=== PATIENT | female | born 1970 | race Caucasian/White ===

== ENCOUNTER 2021-06-22 19:07 | Emergency (ER) | payer BC, MEDICAID ==
[2021-06-22 21:17] LABS: ANION GAP 13.8 mEq/L (7-13); CHLORIDE,CL 105 mmol/L (98-107); SODIUM,NA 142 mmol/L (136-145)
[2021-06-22 23:42] LABS: CORONAVIRUS COVID-19 NAA NEGATIVE (NEGATIVE)
== END 2021-06-23 00:45 | disposition home or self-care (01) ==
LOC: DL.ED 19:07
DX: K59.01 Slow transit constipation (principal); J06.9 Acute upper respiratory infection, unspecified; R31.0 Gross hematuria; E03.9 Hypothyroidism, unspecified; Z88.0 Allergy status to penicillin; Z88.1 Allergy status to other antibiotic agents; Z88.2 Allergy status to sulfonamides; Z88.5 Allergy status to narcotic agent; Z79.899 Other long term (current) drug therapy; Z87.891 Personal history of nicotine dependence; Z20.822 Contact with and (suspected) exposure to COVID-19
CPT/HCPCS: 0240U; 36415; 74176; 80053; 81001; 84484; 85025; 85379; 99284

== ENCOUNTER 2021-07-11 06:06 | Day surgery (SDC) | payer BC, MEDICAID ==
[~2021-07-11 06:06] MED LIST: Dextrose 5%-0.45% NaCl 1,000 ML IV SCH; Sodium Chloride 0.9% 10 ML Syringe FLUSH SCH
[2021-07-11] MEDS ORDERED: fentaNYL 100 MCG/2 ML SDV IV ONE ×3 (06:07→07:00)
[2021-07-11] MEDS ORDERED: Midazolam 1 MG/ML 2 ML SDV IV ONE ×3 (06:07→07:02)
[2021-07-11] MEDS ORDERED: Midazolam 1 MG/ML 2 ML SDV ONE (06:21)
[2021-07-11] MEDS ORDERED: fentaNYL 100 MCG/2 ML SDV ONE (06:21)
== END 2021-07-11 09:10 | disposition home or self-care (01) ==
LOC: DL.ENDO 06:06
PROVIDERS: ATTEND Internal Medicine Gastroenterology
DX: K29.50 Unspecified chronic gastritis without bleeding (principal); F41.1 Generalized anxiety disorder; E03.9 Hypothyroidism, unspecified; K59.09 Other constipation; E78.00 Pure hypercholesterolemia, unspecified; Z90.49 Acquired absence of other specified parts of digestive tract; Z98.890 Other specified postprocedural states; Z88.1 Allergy status to other antibiotic agents; Z88.2 Allergy status to sulfonamides; Z88.5 Allergy status to narcotic agent; Z88.8 Allergy status to other drugs, medicaments and biological substances; Z01.812 Encounter for preprocedural laboratory examination; Z20.822 Contact with and (suspected) exposure to COVID-19
CPT/HCPCS: 43239; 87077; 87635; J2250; J3010; J7042; U0002

== ENCOUNTER 2022-07-31 12:28 | Emergency (ER) | payer MEDICAID, OTHER ==
[2022-07-31] MEDS ORDERED: Metoclopramide 10 MG/2 ML SDV IVPUSH ONE ×2 (13:04→14:17)
[2022-07-31] MEDS ORDERED: LORazepam 2 MG/ML SDV IVPUSH ONE ×2 (13:05→15:41)
[2022-07-31] MEDS ORDERED: diphenhydrAMINE 50 MG/ML SDV IVPUSH ONE (13:05)
[2022-07-31] MEDS: Sodium Chloride 0.9% 10 ML Syringe FLUSH PRN ×3 (13:24→15:57)
[2022-07-31 13:48] LABS: ANION GAP 14.8 mEq/L (7-13); CHLORIDE,CL 106 mmol/L (98-107); SODIUM,NA 141 mmol/L (136-145)
[2022-07-31 13:56] LABS: ESTIMATED GFR 65 mL/min (>=60)
[2022-07-31] MEDS ORDERED: Dexamethasone 4 MG/ML SDV IVPUSH ONE (14:16)
[2022-07-31] MEDS ORDERED: Sodium Chloride 0.9% 1,000 ML IV ONE (14:18)
== END 2022-07-31 16:13 | disposition home or self-care (01) ==
LOC: DL.ED 12:28
DX: G43.909 Migraine, unspecified, not intractable, without status migrainosus (principal); R20.2 Paresthesia of skin; Z88.0 Allergy status to penicillin; Z88.1 Allergy status to other antibiotic agents; Z88.5 Allergy status to narcotic agent; Z88.2 Allergy status to sulfonamides
CPT/HCPCS: 36415; 70450; 80053; 83735; 85025; 86140; 96361; 96374; 96375; 96376; 99284; 99284-25; J1100; J1200; J2060; J2765; J3490; J7030